=== PATIENT | male | born 1995 | race Caucasian/White ===

== ENCOUNTER 2020-03-26 22:10 | Outpatient (REF) | payer BC, SELFPAY ==
[2020-03-28 17:02] LABS: COVID-19 RT-PCR Result NEGATIVE (Negative)
== END 2020-03-26 22:30 ==
LOC: NCHCN 22:10
PROVIDERS: PCP Family Medicine; Visit Provider Physician Assistant Medical
DX: J06.9 Acute upper respiratory infection, unspecified (principal)
CPT/HCPCS: U0003